=== PATIENT | male | born 1970 | race Two or more races ===

== ENCOUNTER → 2023-03-27 | Outpatient (CLI) | payer BC ==
[2023-03-27 09:10] LABS: Basophils # (auto) 0.1 10 ^3/uL (0-0.2); Eosinophils # (auto) 0.1 10 ^3/uL (0-0.8); Eosinophils % (auto) 1.3 % (0.0-7.0); Hematocrit 46.5 % (41.0-53.0); Hemoglobin 15.7 g/dL (13.5-17.5); Lymphocytes # (auto) 1.7 10 ^3/uL (0.4-5.4); Lymphocytes % (auto) 32.5 % (10.0-50.0); Mean Corpuscular Hemoglobin 31.1 pg (28.0-32.0); Mean Corpuscular Hgb Conc. 33.9 g/dL (32.0-36.0); Mean Corpuscular Volume 91.9 fL (80.0-100.0); Monocytes # (auto) 0.7 10 ^3/uL (0-1.3); Monocytes % (auto) 12.6 % (0.0-12.0); Neutrophils # (auto) 2.8 10 ^3/uL (1.6-8.6); Neutrophils % (auto) 52.6 % (37.0-80.0); Red Blood Cells 5.06 10^6/uL (4.5-5.90); Red Cell Distribution Width 12.3 % (11.8-14.3); White Blood Cell 5.2 10^3/uL (4.4-10.8)
[2023-03-27 09:42] LABS: Urine Bacteria NONE SEEN /hpf (None Seen); Urine Blood Negative /uL (Negative); Urine Clarity Clear (Clear); Urine Color Yellow (Yellow); Urine Protein, UAD Negative (Negative); Urine Specific Gravity 1.021 (1.001-1.035); Urine Urobilinogen Normal (Negative); Urine WBC 1 /hpf (0 - 3)
[2023-03-27 10:03] LABS: Alanine Aminotransferase 21 U/L (7-40); Alkaline Phosphatase 61 U/L (46-116); Anion Gap 5 (5-15); Calcium 9.7 mg/dL (8.5-10.1); Carbon Dioxide 28 mmol/L (20-30); Chloride 104 mmol/L (98-107); Potassium 4.6 mmol/L (3.5-5.1); Sodium 137 mmol/L (136-145)
[2023-03-27 10:04] LABS: BUN/Creatinine Ratio 12.1 (10.0-20.0); Blood Urea Nitrogen 12 mg/dL (9-23); Glucose 96 mg/dL (74-106); Triglycerides 111 mg/dL (< 150)
[2023-03-27 10:05] LABS: LDL Cholesterol 163 mg/dL (< 100)
[2023-03-27 10:06] LABS: Albumin 4.4 g/dL (3.2-4.8); Aspartate Aminotransferase 19 U/L (13-40); Bilirubin, Total 0.9 mg/dL (0.2-1.0); Cholesterol 241 mg/dL (< 200); HDL Cholesterol 60 mg/dL (40-59); Total Protein 7.3 g/dL (5.7-8.2)
== END | disposition home or self-care (01) ==
LOC: LAB 08:56
PROVIDERS: ATTEND Internal Medicine
DX: Z12.11 Encounter for screening for malignant neoplasm of colon (principal); Z12.5 Encounter for screening for malignant neoplasm of prostate
CPT/HCPCS: 36415; 80053; 80061; 81001; 82270; 83036; 84153; 85025

== ENCOUNTER → 2023-09-11 | Outpatient (CLI) | payer BC ==
[2023-09-11 09:49] LABS: Cholesterol 238 mg/dL (< 200)
[2023-09-11 09:51] LABS: Triglycerides 96 mg/dL (< 150)
[2023-09-11 09:52] LABS: LDL Cholesterol 156 mg/dL (< 100)
[2023-09-11 09:53] LABS: HDL Cholesterol 70 mg/dL (40-59)
== END | disposition home or self-care (01) ==
LOC: LAB 08:42
PROVIDERS: ATTEND Internal Medicine
DX: E78.5 Hyperlipidemia, unspecified (principal)
CPT/HCPCS: 36415; 80061

== ENCOUNTER → 2023-10-10 | Outpatient (CLI) | payer BC ==
[2023-10-10 08:23] LABS: Albumin 4.1 g/dL (3.2-4.8); Bilirubin, Direct 0.4 mg/dL (<0.3); Bilirubin, Total 1.3 mg/dL (0.2-1.0); Total Protein 6.8 g/dL (5.7-8.2)
== END | disposition home or self-care (01) ==
LOC: LAB 07:41
PROVIDERS: ATTEND Internal Medicine
DX: E78.5 Hyperlipidemia, unspecified (principal)
CPT/HCPCS: 36415; 80076

== ENCOUNTER 2024-05-25 08:08 | Day surgery (SDC) | payer BC ==
[2024-05-23 09:03] LABS: Basophils # (auto) 0 10 ^3/uL (0-0.2); Basophils % (auto) 0.5 % (0.0-2.0); Eosinophils # (auto) 0 10 ^3/uL (0-0.8); Eosinophils % (auto) 0.6 % (0.0-7.0); Hematocrit 44.7 % (41.0-53.0); Hemoglobin 15.4 g/dL (13.5-17.5); Lymphocytes # (auto) 1.7 10 ^3/uL (0.4-5.4); Lymphocytes % (auto) 24.5 % (10.0-50.0); Mean Corpuscular Hemoglobin 31.7 pg (28.0-32.0); Mean Corpuscular Hgb Conc. 34.4 g/dL (32.0-36.0); Mean Corpuscular Volume 92.1 fL (80.0-100.0); Monocytes # (auto) 0.8 10 ^3/uL (0-1.3); Monocytes % (auto) 11.8 % (0.0-12.0); Neutrophils # (auto) 4.3 10 ^3/uL (1.6-8.6); Neutrophils % (auto) 62.6 % (37.0-80.0); Nucleated Red Blood Cells % 0.1 %; Platelet Count (auto) 239 10^3/uL (140-450); Red Blood Cells 4.85 10^6/uL (4.5-5.90); Red Cell Distribution Width 12.7 % (11.8-14.3); White Blood Cell 6.8 10^3/uL (4.4-10.8)
[2024-05-23 09:14] LABS: INR 0.97 (0.9-1.15); Partial Thromboplastin Time 29.5 SEC (24.5-34.5); Prothrombin Time 10.3 sec (9.3-11.8)
[2024-05-23 10:01] LABS: Alanine Aminotransferase 18 U/L (7-40); Albumin 4.4 g/dL (3.2-4.8); Alkaline Phosphatase 63 U/L (46-116); Anion Gap 4 (5-15); Aspartate Aminotransferase 15 U/L (13-40); Blood Urea Nitrogen 14 mg/dL (9-23); Calcium 9.8 mg/dL (8.7-10.4); Carbon Dioxide 29 mmol/L (20-31); Chloride 105 mmol/L (98-107); Glucose 91 mg/dL (74-106); Potassium 4.4 mmol/L (3.5-5.1); Sodium 138 mmol/L (136-145); Total Protein 7.1 g/dL (5.7-8.2)
[2024-05-23 10:02] LABS: Bilirubin, Total 0.8 mg/dL (0.2-1.0)
[~2024-05-25] VITALS: Ht 175.3 cm; Wt 73.5 kg
[2024-05-25] MEDS ORDERED: MIDAZOLAM HCL 2MG/2ML 2ml VIAL (1mg/ml) ONE (10:47)
[2024-05-25 11:03] VITALS: PULSE 57; RESP 16; O2SAT 100
[2024-05-25] MEDS: fentaNYL CITRATE 100 MCG/2 ML VL ONE (11:07)
[2024-05-25] MEDS: MIDAZOLAM HCL 2MG/2ML 2ml VIAL (1mg/ml) ONE (11:07)
[2024-05-25] MEDS: diphenhdrAMINE HCL 50 MG/1 ML VL ONE (11:14)
[2024-05-25 11:31] VITALS: TEMP 97.5
--- NOTE | 2024-05-25 11:33 | DVHNC2 ---
Procedure - DATE OF PROCEDURE: May 25, 2024 SURGEON: NUHA KOHLI MD REFERRING PROVIDER: Dr Regina GILLESPIE PROCEDURE PERFORMED: 1. Colonoscopy with moderate sedation 2. Colonoscopy with Endoclip placement 3. Colonoscopy with cold snare polypectomy 4. Colonoscopy with cold biopsy polypectomy PRE-PROCEDURE DIAGNOSIS: 1. COLON CANCER SCREENING POSTPROCEDURE DIAGNOSIS: 1. Four colon polyps 2. Mild left-sided diverticulosis 3. Internal hemorrhoids INDICATIONS FOR PROCEDURE: The patient is a 54year-old male presents for outpatient colonoscopy for screening MEDICATIONS USED: 4 mg of Versed IV and 100 mcg fentanyl iv and 25 mg of Benadryl IV given in incremental doses DETAILS OF THE PROCEDURE: Informed consent was obtained after risks, benefits, and alternatives, were discussed at length with the patient. The patient gave consent to the procedure as well as the medication used for sedation. The pat ient was placed in the left lateral decubitus position. Digital rectal exam showed internal hemorrhoids. An Olympus variable torsion adult colonoscope was inserted into the rectum and advanced to the cecum. The cecum was identified by the ileocecal valve and the appendiceal orifice. The scope was then withdrawn the prep was good with only small amounts of liquid stool. The patient had one cecal polyp removed with cold snare and an Endoclip was placed for bleeding. The patient had one descending colon removed with cold biopsy forceps and two sigmoid colon polyps removed with cold snare. The polyps measured between 3 mm and 8 mm. The patient had mild left-sided diverticulosis. Retroflexion showed internal hemorrhoids and the patient tolerated the procedure well. [place] BOWEL PREP SCORE: 7 COLONOSCOPY START TIME: 1113 CECUM TIME: 1114 COLONOSCOPY END TIME: 1126 IMPRESSION: 1. 4 colon polyps 2. Mild left-sided diverticulosis 3. Internal hemorrhoids RECOMMENDATIONS: 1. Follow up in GI clinic for procedure and pathology results 2. High-fiber diet 3. Follow up with primary care physician 4. Medical management of the hemorrhoids 5. Repeat colonoscopy in 3 years unless otherwise indicated I WOULD LIKE TO THANK DR. VALDEZ FOR THIS REFERRAL NUHA KOHLI MD May 25, 2024 11:33
[2024-05-25 12:00] VITALS: BP 114/69; PULSE 44; RESP 15; O2SAT 99
== END 2024-05-25 12:12 | disposition home or self-care (01) ==
LOC: GI 08:08
PROVIDERS: ATTEND Specialist
DX: Z12.11 Encounter for screening for malignant neoplasm of colon (principal); D12.0 Benign neoplasm of cecum; D12.5 Benign neoplasm of sigmoid colon; D12.4 Benign neoplasm of descending colon; K57.30 Diverticulosis of large intestine without perforation or abscess without bleeding; K64.8 Other hemorrhoids; Z98.890 Other specified postprocedural states
CPT/HCPCS: 36415; 45380; 45385; 80053; 85025; 85610; 85730; 88305; J1200; J2250; J3010; J7030; 99152

== ENCOUNTER 2024-09-24 06:51 | Outpatient (CLI) | payer BC ==
[2024-09-24 07:59] LABS: Alanine Aminotransferase 20.0 U/L (7-40); Alkaline Phosphatase 60.0 U/L (46-116)
[2024-09-24 08:00] LABS: Total Protein 6.7 g/dL (5.7-8.2)
[2024-09-24 08:01] LABS: Albumin 4.3 g/dL (3.2-4.8); Bilirubin, Direct 0.2 mg/dL (<0.3); Bilirubin, Total 0.8 mg/dL (0.2-1.0); HDL Cholesterol 56.0 mg/dL (40-59)
[2024-09-24 08:05] LABS: Cholesterol 240.0 mg/dL (< 200); Triglycerides 179.0 mg/dL (< 150)
== END 2024-09-24 17:00 | disposition home or self-care (01) ==
LOC: LAB 06:51
PROVIDERS: ATTEND Internal Medicine
DX: E78.5 Hyperlipidemia, unspecified (principal)
CPT/HCPCS: 36415; 80061; 80076

== ENCOUNTER 2024-10-22 13:01 | Outpatient (CLI) | payer BC ==
[2024-10-22 13:59] LABS: Alanine Aminotransferase 25.0 U/L (7-40); Albumin 4.1 g/dL (3.2-4.8); Alkaline Phosphatase 61.0 U/L (46-116); Bilirubin, Direct 0.2 mg/dL (<0.3); Bilirubin, Total 0.6 mg/dL (0.2-1.0); Total Protein 7.0 g/dL (5.7-8.2)
== END 2024-10-22 17:00 | disposition home or self-care (01) ==
LOC: LAB 13:01
PROVIDERS: ATTEND Internal Medicine
DX: E78.5 Hyperlipidemia, unspecified (principal)
CPT/HCPCS: 36415; 80076